=== PATIENT | male | born 1985 ===

== ENCOUNTER 2024-01-16 14:28 | Emergency (ER) | payer SELFPAY ==
[~2024-01-16] VITALS: Ht 177.8 cm; Wt 85.0 kg
[2024-01-16 16:14] VITALS: TEMP 98.2
[2024-01-16] MEDS: HYDROCODONE/ACETAMINOPHEN 5-325 MG TABLET PO ONE (17:10)
[2024-01-16] MEDS: METHOCARBAMOL 500 MG TABLET PO ONE (17:10)
[2024-01-16] MEDS: KETOROLAC TROMETHAMINE 60 MG/2 ML VIAL IM ONE (17:11)
[2024-01-16] MEDS ORDERED: METH-812 PO (18:26)
[2024-01-16] MEDS ORDERED: HYDR-4062 PO (18:26)
[2024-01-16] MEDS ORDERED: IBUP-1554 PO (18:26)
[2024-01-16 19:01] VITALS: BP 144/100; PULSE 82; RESP 18
== END 2024-01-16 18:57 | disposition home or self-care (01) ==
LOC: EMS 14:30
DX: S20.212A Contusion of left front wall of thorax, initial encounter (principal); S00.03XA Contusion of scalp, initial encounter; S16.1XXA Strain of muscle, fascia and tendon at neck level, initial encounter; Y08.89XA Assault by other specified means, initial encounter; Y93.89 Activity, other specified; Y92.89 Other specified places as the place of occurrence of the external cause; Y99.8 Other external cause status
CPT/HCPCS: 99284; 71111; 72040; 73030; 96372; J1885